=== PATIENT | male | born 1940 | race Caucasian/White ===

== ENCOUNTER 2017-03-03 17:15 | Emergency (ER) | payer MEDICARE, OTHER ==
[2017-03-03 18:34] LABS: BASOPHIL 0.2 % (0-2); EOSINOPHIL 1.1 % (0-7); HCT 40.2 % (42.0-52.0); HGB 13.7 g/dl (13.2-18.0); LYMPHOCYTE 10.2 % (15-48); MCH 34.4 pg (25.0-31.0); MCHC 34.1 g/dL (32.0-36.0); MONOCYTE 7.9 % (0-12); MPV 9.6 fL (6.0-9.5); NEUTROPHIL 80.6 % (41-80); PLT 156 K/uL (150-400); RBC 3.98 M/uL (4.70-6.00); RDW 14.9 % (11.5-14.0)
[2017-03-03 18:47] LABS: ALBUMIN 3.5 g/dL (3.4-4.8); BILIRUBIN - TOTAL 1.1 mg/dL (0.1-1.0); CREATININE 0.9 mg/dL (0.7-1.2); POTASSIUM 3.6 mmol/L (3.5-5.1); TOTAL PROTEIN 5.5 g/dL (6.4-8.3)
== END 2017-03-03 22:49 | disposition home or self-care (01) ==
LOC: FER 17:15
PROVIDERS: Internal Medicine
DX: E11.649 Type 2 diabetes mellitus with hypoglycemia without coma (principal); I11.9 Hypertensive heart disease without heart failure; J43.9 Emphysema, unspecified; Z87.39 Personal history of other diseases of the musculoskeletal system and connective tissue; Z79.82 Long term (current) use of aspirin; Z79.899 Other long term (current) drug therapy; Z79.4 Long term (current) use of insulin; Z89.611 Acquired absence of right leg above knee
CPT/HCPCS: 36415; 71010; 80053; 83036; 85025; 93005; J2310; J2765

== ENCOUNTER 2017-04-07 11:42 | Emergency (ER) | payer MEDICARE, OTHER ==
[2017-04-07 12:17] LABS: BASOPHIL 0.7 % (0-2); EOSINOPHIL 3.9 % (0-7); HCT 41.2 % (42.0-52.0); HGB 14.5 g/dl (13.2-18.0); MCH 34.9 pg (25.0-31.0); MCHC 35.2 g/dL (32.0-36.0); MONOCYTE 8.8 % (0-12); MPV 9.8 fL (6.0-9.5); NEUTROPHIL 56.6 % (41-80); PLT 223 K/uL (150-400); RBC 4.16 M/uL (4.70-6.00); RDW 13.9 % (11.5-14.0); WBC 7.6 K/uL (4.0-10.5)
[2017-04-07 12:22] LABS: INR 1.09 (0.9-1.2); PROTHROMBIN TIME 13.7 SECONDS (11.7-14.0); PTT 28.1 SECONDS (23.2-31.4)
[2017-04-07 12:29] LABS: CKMB 2.52 ng/mL (0.97-4.94)
[2017-04-07 12:31] LABS: TROPONIN T 0.19 ng/mL
[2017-04-07 12:32] LABS: ALBUMIN 3.8 g/dL (3.4-4.8); BILIRUBIN - TOTAL 0.6 mg/dL (0.1-1.0); CREATININE 1.1 mg/dL (0.7-1.2); GLOBULIN (CALCULATION) 2.5 g/dL (2.2-4.2); POTASSIUM 4.6 mmol/L (3.5-5.1); TOTAL PROTEIN 6.3 g/dL (6.4-8.3)
== END 2017-04-07 18:00 | disposition other institution (70) ==
LOC: FER 11:42
PROVIDERS: Emergency Medicine
DX: I24.9 Acute ischemic heart disease, unspecified (principal); I11.9 Hypertensive heart disease without heart failure; I25.810 Atherosclerosis of coronary artery bypass graft(s) without angina pectoris; E11.9 Type 2 diabetes mellitus without complications; F03.90 Unspecified dementia, unspecified severity, without behavioral disturbance, psychotic disturbance, mood disturbance, and anxiety; F17.200 Nicotine dependence, unspecified, uncomplicated; Z79.4 Long term (current) use of insulin; Z79.899 Other long term (current) drug therapy; Z89.521 Acquired absence of right knee
CPT/HCPCS: 36415; 70450; 71010; 80053; 82550; 82553; 82728; 84484; 85014; 85018; 85025; 85610; 85730; 93005; J1644